=== PATIENT | female | born 1995 | race Caucasian/White ===

== ENCOUNTER → 2017-01-25 | Outpatient (CLI) | payer OTHER | END | disposition home or self-care (01) | LOC: EEG 09:51 | DX: G93.89 Other specified disorders of brain (principal); G40.919 Epilepsy, unspecified, intractable, without status epilepticus; Q04.0 Congenital malformations of corpus callosum; R62.50 Unspecified lack of expected normal physiological development in childhood | CPT/HCPCS: 95812 ==

== ENCOUNTER 2017-04-24 13:02 | Emergency (ER) | payer OTHER ==
[~2017-04-24] VITALS: Ht 154.9 cm; Wt 58.7 kg
[2017-04-24 14:58] LABS: HEMATOCRIT 42.2 % (36.0-46.0); HEMOGLOBIN 14.4 G/DL (11.9-15.5); MCH 35.9 PG (29.0-34.0); MCHC 34.1 G/DL (30.0-36.0); MCV 105.2 FL (83-99); PLATELET COUNT 272 K/uL (156-360); RBC DIS.WIDTH-CV 12.6 % (11.8-14.6); RBC DIS.WIDTH-SD 48.4 % (39-53); RED BLOOD COUNT 4.01 M/uL (3.80-5.20); WHITE BLOOD COUNT 7.6 K/uL (4.1-10.2)
[2017-04-24 15:07] LABS: ALBUMIN 3.5 g/dL (3.2-4.8); CHLORIDE 106 mEq/L (99-109); POTASSIUM 3.9 mEq/L (3.7-5.4); SODIUM 144 mEq/L (136-147)
[2017-04-24 15:10] LABS: GLUCOSE 79 mg/dL (70-99); TOTAL PROTEIN 5.9 g/dL (6.4-8.3)
[2017-04-24 15:12] LABS: TOTAL BILIRUBIN 0.4 mg/dL (0.0-1.0)
[2017-04-24 15:13] LABS: ALKALINE PHOSPHATASE 144 IU/L (3-129); CREATININE 0.6 mg/dL (0.6-1.3); GFR ESTIMATE (CALCULATED) > 59 mL/min/
[2017-04-24 15:14] LABS: UREA NITROGEN (BUN) 11 mg/dL (9-23)
[2017-04-24 15:15] LABS: AST (GOT) 42 IU/L (2-34)
[2017-04-24 15:16] LABS: ALT (GPT) 116 IU/L (3-49)
[2017-04-24 15:17] LABS: LIPASE 37 U/L (1.0-51.0)
[2017-04-24 15:18] LABS: APPEARANCE CLOUDY ((CLEAR)); BILIRUBIN NEGATIVE; BLOOD NEGATIVE; COLOR YELLOW ((YELLOW)); GLUCOSE (STRIP) NEGATIVE; KETONES NEGATIVE; LEUKOCYTES NEGATIVE; NITRITE NEGATIVE; PROTEIN (STRIP) NEGATIVE; SPECIFIC GRAVITY 1.006 (1.000-1.030); UROBILINOGEN 0.2 MG/DL (0.2-1.0)
[2017-04-24 15:23] LABS: QUANTITATIVE HCG < 4.0 MIU/ML
[2017-04-24 15:41] LABS: AMORPHOUS PHOSPHATE CRYSTALS 2+; BACTERIA NONE SEEN /HPF; EPITHELIAL CELLS RARE /HPF; MUCUS NONE SEEN /LPF; RED BLOOD CELLS NONE SEEN /HPF (0-5); UCUL ADDED? NO; WHITE BLOOD CELLS NONE SEEN /HPF (0-5)
[2017-04-24 20:57] VITALS: BP 117/92
== END 2017-04-24 21:07 | disposition home or self-care (01) ==
LOC: EME 13:02
PROVIDERS: Emergency Medicine
DX: K59.00 Constipation, unspecified (principal); Q89.8 Other specified congenital malformations; R56.9 Unspecified convulsions; Z93.1 Gastrostomy status; Z93.0 Tracheostomy status; Z88.8 Allergy status to other drugs, medicaments and biological substances
CPT/HCPCS: 74177; 80053; 81003; 83690; 84702; 85027; 99281; 99285